=== PATIENT | female | born 1945 | race African-American/Black ===

== ENCOUNTER 2020-04-25 06:48 | Emergency (ER) | payer OTHER ==
[~2020-04-25] VITALS: Ht 162.6 cm; Wt 73.0 kg
[2020-04-25] MEDS ORDERED: FUROSEMIDE 20MG/2ML VIAL IVP ONE (07:30)
[2020-04-25 07:41] LABS: BASOPHILS % 0.6 % (0.0-2.0); EOSINOPHILS % 2.6 % (0.0-5.0); HEMATOCRIT. 37.6 % (36.0-48.0); HEMOGLOBIN. 12.1 g/dL (12.0-16.0); LYMPHOCYTES % 11.6 % (20.0-50.0); MEAN CORPUSCULAR HEMOGLOBIN 23.1 pg (28.0-32.0); MEAN CORPUSCULAR VOLUME 71.8 fL (81.0-99.0); MEAN PLATELET VOLUME 9.6 fl (7.4-10.4); MONOCYTES % 7.3 % (2.0-8.0); NEUTROPHILS % 77.9 % (40.0-76.0); PLATELET 192 x1000/uL (130-400); RED BLOOD CELL COUNT 5.23 mill/uL (4.2-5.4); RED CELL DISTRIBUTION WIDTH 15.7 % (11.6-14.6)
[2020-04-25 07:43] LABS: CHLORIDE 114 mEq/L (98-107)
[2020-04-25] MEDS ORDERED: POTASSIUM CHLORIDE 20MEQ TABLET SR PO ONE (08:30)
[2020-04-25 10:45] VITALS: BP 141/86
== END 2020-04-25 11:35 | disposition short-term general hospital (02) ==
LOC: ER 06:48 → CANBEDREQ 10:53 → ER 11:35
DX: J96.01 Acute respiratory failure with hypoxia (principal); I11.0 Hypertensive heart disease with heart failure; I50.9 Heart failure, unspecified
CPT/HCPCS: 36415; 71045; 80053; 83690; 83880; 84484; 85025; 93005; 96374; 99285; J1940

== ENCOUNTER 2021-04-06 21:50 | Inpatient (IN) | payer OTHER ==
[~2021-04-06] VITALS: Ht 160 cm; Wt 76.9 kg
[2021-04-06] MEDS ORDERED: DILTIAZEM HCL 125 MG in DEXT 5% WATER 100 ML IV ONE (22:15)
[2021-04-06] MEDS ORDERED: DILTIAZEM HCL 5MG/ML 5ML VIAL IV ONE ×2 (22:15)
[2021-04-06] MEDS ORDERED: ALBUTEROL (0.083%) 2.5MG/3ML NEB HHN ONE (22:30)
[2021-04-06] MEDS ORDERED: METHYLPREDNISOLONE SOD SUCC 125 MG/2 ML VIAL IV ONE (22:30)
[2021-04-06] MEDS ORDERED: DILTIAZEM HCL 125 MG in DEXT 5% WATER 100 ML IV PRN (22:30)
[2021-04-06 22:45] LABS: BASOPHILS % 0.2 % (0.0-2.0); EOSINOPHILS % 0.1 % (0.0-5.0); HEMATOCRIT. 45.5 % (36.0-48.0); HEMOGLOBIN. 14.1 g/dL (12.0-16.0); LYMPHOCYTES % 22.7 % (20.0-50.0); MEAN CORPUSCULAR HEMOGLOBIN 22.6 pg (28.0-32.0); MEAN CORPUSCULAR VOLUME 72.9 fL (81.0-99.0); MEAN PLATELET VOLUME 9.4 fl (7.4-10.4); MONOCYTES % 13.5 % (2.0-8.0); NEUTROPHILS % 63.5 % (40.0-76.0); PLATELET 231 x1000/uL (130-400); RED BLOOD CELL COUNT 6.24 mill/uL (4.2-5.4); RED CELL DISTRIBUTION WIDTH 17.4 % (11.6-14.6)
[2021-04-06 22:51] LABS: CHLORIDE 109 mEq/L (98-107)
[2021-04-07] MEDS ORDERED: TRAMADOL 50MG TABLET PO ONE (01:00)
[2021-04-07] MEDS ORDERED: ONDANSETRON HCL 4MG/2ML INJ IV PRN (02:45)
[2021-04-07] MEDS ORDERED: ACETAMINOPHEN 325MG TABLET PO PRN (02:45)
[2021-04-07] MEDS ORDERED: ZOLPIDEM TARTRATE 5MG TABLET PO PRN (02:45)
[2021-04-07] MEDS: ENOXAPARIN 80MG/0.8ML SYR SUBCUT SCH (04:48)
[2021-04-07] MEDS: SODIUM CHLORIDE 0.9% INJ 3ML FLUSH IVF SCH ×3 (06:56→22:26)
[2021-04-07 11:51] LABS: BASOPHILS % 0.1 % (0.0-2.0); HEMOGLOBIN. 12.7 g/dL (12.0-16.0); LYMPHOCYTES % 13.7 % (20.0-50.0); MEAN CORPUSCULAR HEMOGLOBIN 22.8 pg (28.0-32.0); MEAN CORPUSCULAR VOLUME 71.9 fL (81.0-99.0); MEAN PLATELET VOLUME 9.3 fl (7.4-10.4); NEUTROPHILS % 83.2 % (40.0-76.0); PLATELET 215 x1000/uL (130-400); RED BLOOD CELL COUNT 5.56 mill/uL (4.2-5.4); RED CELL DISTRIBUTION WIDTH 17.3 % (11.6-14.6)
[2021-04-07] MEDS: DILTIAZEM HCL 30MG TABLET PO SCH ×2 (11:59→18:09)
[2021-04-07 12:07] LABS: T4 FREE 1.22 ng/dL (0.76-1.46)
[2021-04-07] MEDS: DIGOXIN 500MCG/2ML AMP IV SCH ×2 (15:19→21:00)
[2021-04-07] MEDS ORDERED: AMIODARONE HCL 150 MG in DEXT 5% WATER 100 ML IV ONE (15:30)
[2021-04-07] MEDS ORDERED: AMIODARONE HCL 900 MG in DEXT 5% WATER 482 ML IV SCH (16:00)
[2021-04-07] MEDS: ACETAMINOPHEN 325MG TABLET PO PRN (19:36)
[2021-04-07] MEDS: DIPHENHYDRAMINE 50MG/ML VIAL IV PRN (22:54)
[2021-04-08] VITALS (9 sets, daily range): BP systolic 113–135; BP diastolic 65–99
[2021-04-08] MEDS: DILTIAZEM HCL 125 MG in DEXT 5% WATER 100 ML IV NR ×2 (00:07→00:22)
[2021-04-08] MEDS ORDERED: ZOLPIDEM TARTRATE 5MG TABLET PO PRN (01:15)
[2021-04-08] MEDS: ZOLPIDEM TARTRATE 5MG TABLET PO PRN ×3 (01:45→21:06)
[2021-04-08] MEDS: DILTIAZEM HCL 30MG TABLET PO SCH ×5 (06:00→23:42)
[2021-04-08 06:29] LABS: HEMATOCRIT. 38.6 % (36.0-48.0); HEMOGLOBIN. 12.4 g/dL (12.0-16.0); MEAN CORPUSCULAR HEMOGLOBIN 22.4 pg (28.0-32.0); MEAN CORPUSCULAR VOLUME 70.1 fL (81.0-99.0); MEAN PLATELET VOLUME 9.3 fl (7.4-10.4); PLATELET 233 x1000/uL (130-400); RED BLOOD CELL COUNT 5.51 mill/uL (4.2-5.4); RED CELL DISTRIBUTION WIDTH 16.7 % (11.6-14.6)
[2021-04-08 06:31] LABS: INR 1.3; PROTHROMBIN TIME 13.4 sec (9.6-11.0)
[2021-04-08] MEDS: ACETAMINOPHEN 325MG TABLET PO PRN ×2 (09:09→23:41)
[2021-04-08] MEDS: GUAIFENESIN 200MG/10ML SUGAR FREE UDC PO PRN ×3 (09:09→23:41)
[2021-04-08] MEDS: DIGOXIN 500MCG/2ML AMP IV SCH (09:19)
[2021-04-08] MEDS: ENOXAPARIN 80MG/0.8ML SYR SUBCUT SCH ×2 (09:42→21:06)
[2021-04-08 11:13] LABS: NUCLEATED RED BLOOD CELLS 1 /100 WBC; PLATELET ESTIMATE NORMAL
[2021-04-08] MEDS: SODIUM CHLORIDE 0.9% INJ 3ML FLUSH IVF SCH ×3 (13:30→21:06)
[2021-04-08 17:10] LABS: CLARITY URINE CLEAR (CLEAR); COLOR URINE YELLOW (YELLOW); KETONES URINE TRACE (NEGATIVE); LEUKOCYTE ESTERASE URINE NEGATIVE (NEGATIVE); NITRITE URINE NEGATIVE (NEGATIVE); OCCULT BLOOD URINE NEGATIVE (NEGATIVE); PH URINE 5.5 (4.5-8.0); PROTEIN URINE 1+ (NEGATIVE); SPECIFIC GRAVITY URINE 1.024 (1.005-1.030)
[2021-04-08 17:26] LABS: *AMPHETAMINES SCREEN URINE NEGATIVE (NEGATIVE); *BARBITURATES SCREEN URINE NEGATIVE (NEGATIVE); *BENZODIAZEPINES SCREEN URINE NEGATIVE (NEGATIVE); *COCAINE SCREEN URINE PRESUMTIVE POSITIVE (NEGATIVE); METHADONE URINE SCREEN NEGATIVE (NEGATIVE)
[2021-04-08 17:27] LABS: CANNABINOID URINE SCREEN NEGATIVE (NEGATIVE); OPIATES URINE SCREEN PRESUMTIVE POSITIVE (NEGATIVE); PHENCYCLIDINE URINE SCREEN NEGATIVE (NEGATIVE)
[2021-04-08] MEDS: AMIODARONE HCL 200 MG TABLET PO SCH (21:06)
[2021-04-09] VITALS (12 sets, daily range): BP systolic 113–133; BP diastolic 62–94
[2021-04-09] MEDS: DILTIAZEM HCL 30MG TABLET PO SCH (05:56)
[2021-04-09] MEDS: SODIUM CHLORIDE 0.9% INJ 3ML FLUSH IVF SCH ×3 (05:56→22:26)
[2021-04-09] MEDS: ACETAMINOPHEN 325MG TABLET PO PRN ×3 (08:38→19:59)
[2021-04-09] MEDS: AMIODARONE HCL 200 MG TABLET PO SCH ×2 (08:38→20:00)
[2021-04-09] MEDS: DIGOXIN 500MCG/2ML AMP IV SCH (08:38)
[2021-04-09] MEDS: GUAIFENESIN 200MG/10ML SUGAR FREE UDC PO PRN ×2 (08:38→19:58)
[2021-04-09] MEDS: ENOXAPARIN 80MG/0.8ML SYR SUBCUT SCH ×2 (08:39→20:00)
[2021-04-09] MEDS ORDERED: DILTIAZEM HCL 30MG TABLET PO SCH (09:45)
[2021-04-09] MEDS ORDERED: DILTIAZEM HCL 60MG TABLET PO SCH (12:00)
[2021-04-09] MEDS ORDERED: CARV12.545 PO (16:41)
[2021-04-09] MEDS ORDERED: GABA-290 PO (16:41)
[2021-04-09] MEDS ORDERED: VARE1TAB22 PO (16:41)
[2021-04-09] MEDS ORDERED: HYDR-4009 MT (16:41)
[2021-04-09] MEDS ORDERED: TRAZ-251 PO (16:41)
[2021-04-09] MEDS ORDERED: P20 PO (16:41)
[2021-04-09] MEDS ORDERED: POTA10TA2 PO (16:41)
[2021-04-09] MEDS: METOPROLOL TARTRATE 50MG TABLET PO SCH (20:00)
[2021-04-09 23:06] LABS: BASOPHILS % 0.1 % (0.0-2.0); EOSINOPHILS % 0.2 % (0.0-5.0); HEMATOCRIT. 38.4 % (36.0-48.0); HEMOGLOBIN. 12.3 g/dL (12.0-16.0); LYMPHOCYTES % 13.2 % (20.0-50.0); MEAN CORPUSCULAR HEMOGLOBIN 22.7 pg (28.0-32.0); MEAN CORPUSCULAR VOLUME 70.5 fL (81.0-99.0); MEAN PLATELET VOLUME 8.9 fl (7.4-10.4); MONOCYTES % 10.4 % (2.0-8.0); NEUTROPHILS % 76.1 % (40.0-76.0); PLATELET 244 x1000/uL (130-400); RED BLOOD CELL COUNT 5.44 mill/uL (4.2-5.4)
[2021-04-09 23:10] LABS: CHLORIDE 112 mEq/L (98-107)
[2021-04-10] VITALS: BP 118/81
[2021-04-10] MEDS: DIPHENHYDRAMINE 50MG/ML VIAL IV PRN (01:33)
[2021-04-10] MEDS: ACETAMINOPHEN 325MG TABLET PO PRN (01:33)
[2021-04-10 02:00] VITALS: BP 115/97
[2021-04-10 04:00] VITALS: BP 124/93
[2021-04-10 06:00] VITALS: BP 129/83
[2021-04-10] MEDS: SODIUM CHLORIDE 0.9% INJ 3ML FLUSH IVF SCH (06:43)
[2021-04-10 08:30] VITALS: BP 129/83
[2021-04-10] MEDS: AMIODARONE HCL 200 MG TABLET PO SCH (08:32)
[2021-04-10] MEDS: DIGOXIN 500MCG/2ML AMP IV SCH (08:32)
[2021-04-10] MEDS: METOPROLOL TARTRATE 50MG TABLET PO SCH (08:33)
[2021-04-10] MEDS: ENOXAPARIN 80MG/0.8ML SYR SUBCUT SCH (08:38)
== END 2021-04-10 08:40 | disposition short-term general hospital (02) | DRG 308 ==
LOC: ER 22:07 → MICUSO 04-07 → 3WST 04-08 07:39
PROVIDERS: ADMIT Internal Medicine; ATTEND Internal Medicine
DX: I48.19 Other persistent atrial fibrillation (principal); I50.43 Acute on chronic combined systolic (congestive) and diastolic (congestive) heart failure; I13.0 Hypertensive heart and chronic kidney disease with heart failure and stage 1 through stage 4 chronic kidney disease, or unspecified chronic kidney disease; J44.1 Chronic obstructive pulmonary disease with (acute) exacerbation; N17.9 Acute kidney failure, unspecified; D72.829 Elevated white blood cell count, unspecified; R74.01 Elevation of levels of liver transaminase levels; F14.10 Cocaine abuse, uncomplicated; N18.9 Chronic kidney disease, unspecified; F17.210 Nicotine dependence, cigarettes, uncomplicated; Z88.0 Allergy status to penicillin; Z82.49 Family history of ischemic heart disease and other diseases of the circulatory system; Z71.6 Tobacco abuse counseling
CPT/HCPCS: 36415; 71045; 80048; 80053; 80305; 81003; 82962; 83036; 83880; 84439; 84443; 84484; 85025; 93005; 93306; 94640; 97162; 99291; J0282; J1160; J1200; J1650; J2930; J3490; J7060